=== PATIENT | male | born 1975 | race Asian ===

== ENCOUNTER 2018-02-11 22:53 | Emergency (ER) | payer BC ==
[~2018-02-11] VITALS: Ht 165.1 cm; Wt 69.6 kg
[2018-02-11 23:01] VITALS: Ht 165.1 cm; Wt 69.6 kg
[2018-02-12 04:33] VITALS: BP 147/70
== END 2018-02-12 04:33 | disposition home or self-care (01) ==
LOC: ED 22:53
DX: S56.498A Other injury of extensor muscle, fascia and tendon of left little finger at forearm level, initial encounter (principal); X58.XXXA Exposure to other specified factors, initial encounter; Y93.89 Activity, other specified; Y92.89 Other specified places as the place of occurrence of the external cause; Y99.8 Other external cause status